=== PATIENT | female | born 1985 | race American Indian/Alaskan Native ===

== ENCOUNTER 2019-04-23 22:02 | Emergency (ER) | payer OTHER ==
[2019-04-23 22:08] VITALS: BP 123/84
[2019-04-23 22:34] LABS: Basophils # (Auto) 0.1 K/mm3 (0.0-0.1); Basophils % (Auto) 0.8 % (0.0-1.8); Eosinophils # (Auto) 0.2 K/mm3 (0.0-0.4); Eosinophils % (Auto) 1.6 % (0.0-4.3); Hematocrit 39.4 % (30.3-42.9); Hemoglobin 13.1 gm/dl (10.1-14.3); Lymphocytes # (Auto) 2.6 K/mm3 (1.2-5.4); Lymphocytes % (Auto) 24.7 % (13.4-35.0); Mean Corpuscular HGB Conc 33 % (30-34); Mean Corpuscular Volume 86 fl (79-97); Monocytes # (Auto) 0.9 K/mm3 (0.0-0.8); Monocytes % (Auto) 8.8 % (0.0-7.3); Platelet Count 316 K/mm3 (140-440); Red Blood Count 4.57 M/mm3 (3.65-5.03)
[2019-04-23 22:45] LABS: Bacteria,Urine 1+ /HPF (Negative); Bilirubin,Urine NEG (Negative); Blood,Urine SM (Negative); Color,Urine Colorless (Yellow); Protein,Urine <15 mg/dL mg/dL (Negative); Urobilinogen,Urine < 2.0 mg/dL (<2.0); WBC,Urine < 1.0 /HPF (0.0-6.0)
[2019-04-23 23:15] LABS: Alanine Aminotransferase 20 units/L (7-56); Albumin 4.2 g/dL (3.9-5); BUN/Creatinine Ratio 11; Blood Urea Nitrogen 8 mg/dL (7-17); Calcium 9.5 mg/dL (8.4-10.2); Hemolysis Index 20
[2019-04-24] MEDS ORDERED: ZOFRAN IV ONE (01:15)
[2019-04-24] MEDS ORDERED: MORPHINE IV ONE (01:15)
[2019-04-24] MEDS ORDERED: MORPHINE ONE (01:50)
--- NOTE | 2019-04-24 04:32 | Cat Scan Report ---
CT abdomen pelvis w con INDICATION / CLINICAL INFORMATION: abdominal pain. TECHNIQUE: Axial CT imaging of the abdomen and pelvis were obtained with IV contrast only. Coronal and sagittal reformatted imaging obtained and reviewed. All CT scans at this location are performed using CT dose reduction for ALARA by means of automated exposure control. COMPARISON: None available. FINDINGS: CT abdomen with contrast demonstrates normal appearance of the liver, spleen, pancreas, kidneys, and adrenal glands. No gallbladder pathology or biliary dilatation noted. CT pelvis with contrast shows small amount of free fluid is throughout the pelvis. There is endometri al fluid/thickening present. Right ovary is slightly prominent but without distinct mass normal appen meghann is present. GI tract is unremarkable. Visualized lung bases are clear. No significant acute skeletal abnormality. Incidental finding of 2.5 cm cystic structure in the left femoral neck. This is incompletely visualized but may represent a benign aneurysmal bone cyst. IMPRESSION: 1. Slightly prominent right ovary with associated free fluid in the pelvis. Overall appearance is mos t suggestive of recent ovarian cyst rupture. Please correlate clinically. If clinically warranted, pe lvic ultrasound may provide additional information. 2. No other significant finding within the abdomen or pelvis. 3. Incidental finding of a cystic mass in the left intertrochanteric region of the hip. Overall appea ebonie would suggest a benign entity, possibly aneurysmal bone cyst. Signer Name: Elena Flowers MD Signed: 04/24/2019 3:28 AM Workstation Name: [id number]
--- NOTE | 2019-04-24 04:41 | Emergency Department Report ---
ED Abdominal Pain HPI - General Chief Complaint: Abdominal Pain Stated Complaint: ABD PAIN CRAMPING Time Seen by Provider: 04/24/19 01:30 Source: patient Mode of arrival: Ambulatory Limitations: No Limitations - History of Present Illness Initial Comments: Patient is a 33-year-old AA female with no past medical history who presents to the ED with complaint of acute onset of persistent severe diffuse abdominal pain was in the lower abdomen for the last 5 days, worse in the last 2 days with nausea and vomiting. Patient denies dysuria, urinary frequency and urgency, dizziness, fever, chills, vaginal bleeding, vaginal discharge, low back pain, heavy lifting or traumatic injury, chest pain or shortness of breath. MD Complaint: abdominal pain, other (nausea and vomiting) -: Sudden, days(s) (5) Location: diffuse Radiation: none Migration to: no migration Severity: moderate Severity scale (0 -10): 4 Quality: cramping, aching, sharp Consistency: intermittent Improves With: nothing Worsens With: nothing Context: other (None) Associated Symptoms: denies other symptoms, nausea, vomiting. denies: diarrhea, fever, chills, constipation, hematemesis, melena, anorexia, syncope - Related Data Previous Rx's Medication Instructions Recorded Last Taken Type Ketorolac [Toradol] 10 mg PO Q8H PRN #20 tablet 04/24/19 Unknown Rx Ondansetron [Zofran Odt] 4 mg PO Q6HR PRN #15 tab.rapdis 04/24/19 Unknown Rx traMADol [Ultram] 50 mg PO Q6HR PRN #15 tablet 04/24/19 Unknown Rx Allergies Allergy/AdvReac Type Severity Reaction Status Date / Time No Known Allergies Allergy Verified 04/23/19 22:08 ED Review of Systems ROS: Stated complaint: ABD PAIN CRAMPING Other details as noted in HPI Constitutional: denies: chills, fever Eyes: denies: eye pain, eye discharge, vision change ENT: denies: ear pain, throat pain Respiratory: denies: cough, shortness of breath, wheezing Cardiovascular: denies: chest pain, palpitations Endocrine: no symptoms reported Gastrointestinal: abdominal pain, nausea, vomiting. denies: diarrhea, eleno tochezia Genitourinary: denies: urgency, dysuria, discharge Musculoskeletal: denies: back pain, joint swelling, arthralgia Skin: denies: rash, lesions Neurological: denies: headache, weakness, paresthesias Psychiatric: denies: anxiety, depression Hematological/Lymphatic: denies: easy bleeding, easy bruising ED Past Medical Hx - Past Medical History Hx Asthma: Yes (as child) - Surgical History Past Surgical History?: Yes Hx Breast Surgery: Yes (lump from left) - Social History Smoking Status: Current Every Day Smoker Substance Use Type: Alcohol - Medications Home Medications: Home Medications Medication Instructions Recorded Confirmed Last Taken Type Ketorolac [Toradol] 10 mg PO Q8H PRN #20 tablet 04/24/19 Unknown Rx Ondansetron [Zofran Odt] 4 mg PO Q6HR PRN #15 tab.rapdis 04/24/19 Unknown Rx traMADol [Ultram] 50 mg PO Q6HR PRN #15 tablet 04/24/19 Unknown Rx ED Physical Exam - General Limitations: No Limitations General appearance: alert, in no apparent distress - Head Head exam: Present: atraumatic, normocephalic, normal inspection - Eye Eye exam: Present: normal appearance, PERRL, EOMI Pupils: Present: normal accommodation - ENT ENT exam: Present: normal exam, normal orophraynx, mucous membranes moist, TM's normal bilaterally, normal external ear exam - Neck Neck exam: Present: normal inspection - Respiratory Respiratory exam: Present: normal lung sounds bilaterally. Absent: respiratory distress, wheezes, rhonchi, stridor, chest wall tenderness, accessory muscle use, decreased breath sounds - Cardiovascular Cardiovascular Exam: Present: regular rate, normal rhythm, normal heart sounds. Absent: systolic murmur, diastolic murmur, rubs, gallop - GI/Abdominal GI/Abdominal exam: Present: soft, tenderness (diffuse), normal bowel sounds. Absent: hyperactive bowel sounds, organomegaly - Rectal Rectal exam: Present: deferred - Bi-manual exam: Present: other (deferred pelvic exam: Declined) - Extremities Exam Extremities exam: Present: normal inspection, full ROM, normal capillary refill - Back Exam Back exam: Present: normal inspection, full ROM. Absent: CVA tenderness (L) - Neurological Exam Neurological exam: Present: alert, oriented X3, CN II-XII intact, normal gait, reflexes normal - Psychiatric Psychiatric exam: Present: normal affect, normal mood - Skin Skin exam: Present: warm, dry, intact, normal color. Absent: rash ED Course Vital Signs 04/23/19 22:05 Temperature 97.9 F Pulse Rate 80 Respiratory 18 Rate Blood Pressure 123/84 O2 Sat by Pulse 99 Oximetry - Reevaluation(s) Reevaluation #1: 04/24/19 04:44 Patient is alert and oriented 3 and is not in distress. Patient was treated for pain in the ED and abscess of his asthma reviewed and are unremarkable. A bdomen pelvis CT scan with contrast shows a slightly prominent right ovary with associated free fluid in the pelvis, with overall appearance suggestive of a recent ovarian cyst rupture. On reevaluation, patient's pain is well controlled and patient was discharged home on pain medications and advised to follow-up with her [employer] physician in 5-7 days for reevaluation or return to the ED immediately if symptoms get worse. 04/24/19 04:44 ED Medical Decision Making - Lab Data Result diagrams: 04/23/19 22:17 04/23/19 22:17 - Radiology Data Radiology results: report reviewed, image reviewed Abdomen pelvis CT scan w/contrast: Shows a slightly prominent right ovary with associated free fluid in the pelvis, with overall appearance suggestive of a recent ovarian cyst rupture. - Medical Decision Making Patient is alert and oriented 3 and is not in distress. Patient was treated for pain in the ED and abscess of his asthma reviewed and are unremarkable. Ab domen pelvis CT scan with contrast shows a slightly prominent right ovary with associated free fluid in the pelvis, with overall appearance suggestive of a recent ovarian cyst rupture. On reevaluation, patient's pain is well controlled and patient was discharged home on pain medications and advised to follow-up with her [employer] physician in 5-7 days for reevaluation or return to the ED immediately if symptoms get worse. - Differential Diagnosis Acute colitis; Acute Appendicitis, Acute PID, Acute cholecystitis Critical care attestation.: If time is entered above; I have spent that time in minutes in the direct care of this critically ill patient, excluding procedure time. ED Disposition Clinical Impression: Right ovarian cyst Abdominal pain Qualifiers: Abdominal location: lower abdomen, unspecified Qualified Code(s): R10.30 - Lower abdominal pain, unspecified Disposition: DC-01 TO HOME OR SELFCARE Is pt being admited?: No Does the pt Need Aspirin: No Condition: Stable Instructions: Abdominal Pain (ED), Ovarian Cyst (ED) Additional Instructions: Take medications with food, drink plenty of fluids and follow up with your [employer] physician in 2-3 days for reevaluation. Return to the ED immediately if symptoms get worse. Prescriptions: Ketorolac [Toradol] 10 mg PO Q8H PRN #20 tablet PRN Reason: Pain traMADol [Ultram] 50 mg PO Q6HR PRN #15 tablet PRN Reason: Pain Ondansetron [Zofran Odt] 4 mg PO Q6HR PRN #15 tab.rapdis PRN Reason: Nausea Referrals: JANICE DURBIN MD [Primary Care Provider] - 3-5 Days Forms: Work/School Release Form(ED) Time of Disposition: 04:39 Print Language: BENGALI
[2019-04-24] MEDS ORDERED: REGLAN IV ONE (05:05)
[2019-04-24] MEDS ORDERED: DILAUDID IV ONE (05:05)
[2019-04-24] MEDS ORDERED: DILAUDID ONE (05:07)
== END 2019-04-24 05:18 | disposition home or self-care (01) ==
LOC: ED 22:02
DX: N83.201 Unspecified ovarian cyst, right side (principal); J45.909 Unspecified asthma, uncomplicated; F17.200 Nicotine dependence, unspecified, uncomplicated; Z79.899 Other long term (current) drug therapy
CPT/HCPCS: 36415; 74177; 80053; 81001; 83690; 84703; 85025; 96374; 96375; 99284; J1170; J2270; J2405; J2765; Q9967